=== PATIENT | female | born 1985 | race Caucasian/White ===

== ENCOUNTER 2016-09-21 12:50 | Emergency (ER) | payer SELFPAY ==
[~2016-09-21] VITALS: Ht 157.5 cm; Wt 83.9 kg
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
--- NOTE | 2016-09-21 15:10 | NUR ---
PT RESTING COMFORTABLY. ON MONITOR. STABLE VITALS. WILL CONTINUE TO MONITOR.
--- NOTE | 2016-09-21 15:57 | NUR ---
PT IS AWAKE. AMBULATORY W/ STEADY GAIT. WAS PROVIDED W/ ORAL FLUID. D/C IN STABLE CONDIION.
[2016-09-21 15:59] VITALS: BP 122/64
== END 2016-09-21 16:00 | disposition home or self-care (01) ==
LOC: ER 12:52
DX: F10.129 Alcohol abuse with intoxication, unspecified (principal); R41.82 Altered mental status, unspecified
CPT/HCPCS: 36415; 70450-TC; 82962-TC; 84703-TC; A4606; G0480; Z7610

== ENCOUNTER 2016-09-21 17:53 | Emergency (ER) | payer SELFPAY ==
[~2016-09-21] VITALS: Ht 152.4 cm; Wt 81.6 kg
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
[2016-09-21] MEDS ORDERED: OLANZAPINE 10 MG VIAL IM ONE (18:24)
[2016-09-21] MEDS: OLANZAPINE 10 MG VIAL IM ONE (18:29)
--- NOTE | 2016-09-21 18:29 | NUR ---
SEEN AND ASSESSED BY RITA WITH ORDERS FOR IM [id number]- GIVEN - SEE EMAR
--- NOTE | 2016-09-21 18:30 | NUR ---
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
[2016-09-21] MEDS ORDERED: LORAZEPAM 1 MG TABLET ONE (18:33)
[2016-09-21] MEDS: LORAZEPAM 1 MG TABLET PO ONE (18:36)
--- NOTE | 2016-09-21 18:36 | NUR ---
PO ATIVAN GIVEN ORDERED
[2016-09-21 18:50] LABS: BASOPHILS % (AUTO) 0.4 % (0.0-2.0); EOSINOPHILS # (AUTO) 0.1 /CMM (0.0-0.7); EOSINOPHILS % (AUTO) 0.6 % (0.0-6.0); HEMATOCRIT 38 % (33-45); HEMOGLOBIN 12.6 g/dL (11.5-14.8); LYMPHOCYTES # (AUTO) 2.1 /CMM (0.8-4.8); LYMPHOCYTES % (AUTO) 16.9 % (20.0-44.0); MEAN CORPUSCULAR HEMOGLOBIN 28 PG (26.0-33.0); MEAN CORPUSCULAR HGB CONC 34 g/dl (31.0-36.0); MEAN CORPUSCULAR VOLUME 84 fL (82-100); MONOCYTES % (AUTO) 8.6 % (2.0-12.0); NEUTROPHILS # (AUTO) 8.9 /CMM (1.8-8.9); NEUTROPHILS % (AUTO) 73.5 % (43.0-81.0); PLATELET COUNT (AUTO) 248 /CMM (150-450); RDW COEFFICIENT OF VARIATION 14.9 (11.5-15.0); RED BLOOD CELL COUNT(AUTO) 4.48 MIL/uL (4.0-5.2); WHITE BLOOD COUNT (AUTO) 12.1 K/uL (4.3-11.0)
[2016-09-21 18:58] LABS: CALCIUM, SERUM 8.6 mg/dL (8.5-10.1); CARBON DIOXIDE 18 mmol/L (21-32); CHLORIDE 109 mmol/L (98-107); CREATININE 1.1 mg/dL (0.6-1.3); GLUCOSE 91 mg/dL (74-106); POTASSIUM 3.7 mmol/L (3.5-5.1); SODIUM SERUM 145 mmol/L (136-145); UREA NITROGEN, BLOOD 27 mg/dL (7-18)
[2016-09-21 19:09] LABS: ACETAMINOPHEN < 10 ug/ml (10-30); ALANINE AMINOTRANSFERASE 88 U/L (12-78); ALBUMIN 4.1 g/dL (3.4-5.0); ALCOHOL, BLOOD 41 mg/dL (0-0); ALKALINE PHOSPHATASE 78 U/L (46-116); ASPARTATE AMINOTRANSFERASE 50 U/L (15-37); BILIRUBIN,DIRECT 0.2 mg/dL (0.0-0.2); BILIRUBIN,TOTAL 0.9 mg/dL (0.2-1.0); SALICYLATE 2.7 mg/dL (2.8-20.0); TOTAL PROTEIN, SERUM 8.2 g/dL (6.4-8.2)
[2016-09-21 21:38] VITALS: BP 103/52
--- NOTE | 2016-09-21 21:38 | NUR ---
Patient given written and verbal discharge instructions. Patient verbalizes understanding of instructions. Patient is ambulatory with steady gait. Refuses offer of penitentiary placement. Patient given list of available shelters in surrounding area. VSS, NAD noted on DC. Denies complaint on DC.
== END 2016-09-21 21:41 | disposition home or self-care (01) ==
LOC: ER 17:55
DX: F24 Shared psychotic disorder (principal); B19.20 Unspecified viral hepatitis C without hepatic coma; F20.9 Schizophrenia, unspecified; J45.909 Unspecified asthma, uncomplicated
CPT/HCPCS: 36415; 80048-TC; 80076-TC; 85025-TC; A4606; G0480; J3490; Z7610